=== PATIENT | female | born 1930 | race Caucasian/White ===

== ENCOUNTER 2017-07-30 13:51 | Outpatient (CLI) | payer MEDICARE | END 2017-07-30 13:52 | disposition home or self-care (01) | LOC: BICCT 13:51 | PROVIDERS: ATTEND Nurse Practitioner Family | DX: M54.6 Pain in thoracic spine (principal); M54.5 Low back pain; M47.814 Spondylosis without myelopathy or radiculopathy, thoracic region; M47.816 Spondylosis without myelopathy or radiculopathy, lumbar region; M41.25 Other idiopathic scoliosis, thoracolumbar region | CPT/HCPCS: 72070; 72100; 72128 ==

== ENCOUNTER 2017-10-04 12:53 | Observation (INO) | payer MEDICARE ==
[2017-10-04 13:36] LABS: #Monocytes 0.9 thou/uL (0.11-0.59); #Neutrophils 8.9 thou/uL (1.40-6.50); %Basophils 0.2 % (0.0-1.0); %Eosinophils 0.3 % (0.0-10.0); %Lymphocytes 9.5 % (21.0-51.0); %Neutrophils 82.1 % (42.0-75.0); Hemoglobin 11.5 g/dL (12.0-16.0); Mean Corpuscular HGB CONC 33.1 g/dL (32.0-36.0); Mean Corpuscular Hemoglobin 31.7 pg (27.0-31.0); Mean Corpuscular Volume 95.8 fl (81.0-99.0); Mean Platelet Volume 6.8 fL (7.4-10.4); Platelet Count 214 thou/uL (130-400); RBC Distribution Width 15.9 % (11.5-14.5); Red Blood Cell (RBC) Count 3.63 mill/uL (4.20-5.40); White Blood Cell (WBC) Count 10.8 thou/uL (4.8-10.8)
[2017-10-04 13:56] LABS: INR-International Normal Ratio 1.3; PTT 38.4 SEC (22.9-36.1); Prothrombin Time 16.7 SEC (12.0-14.7)
[2017-10-04 13:57] LABS: ALT (SGPT) 8 U/L (8-55); AST (SGOT) 16 U/L (5-34); Albumin 3.3 g/dL (3.4-4.8); Alkaline Phosphatase 68 U/L (40-150); Anion Gap 14 mmol/L (10-20); BUN (Urea Nitrogen) 9 mg/dL (9.8-20.1); Bilirubin, Total 0.9 mg/dL (0.2-1.2); Calc. Creatinine Clearance 0 mL/min (70-130); Calcium 8.8 mg/dL (7.8-10.44); Carbon Dioxide 22 mmol/L (23-31); Chloride 97 mmol/L (98-107); Estimated GFR-MDRD 74; Globulin 2.9 g/dL (2.4-3.5); Glucose 129 mg/dL (83-110); Potassium 3.9 mmol/L (3.5-5.1); Protein, Total 6.2 g/dL (6.0-8.3); Sodium 129 mmol/L (136-145)
--- NOTE | 2017-10-04 14:19 | RAD ---
PELVIS 1 VIEW: Date: 10/04/17 HISTORY: Pelvic pain. COMPARISON: None. FINDINGS: There is mild narrowing of the hip joints. No acute displaced fracture or malalignment. Mild narrowin g of the pubic symphysis. Obturator rings appear intact, as well as the acetabulum. Sacrum appears to be intact. Ilium and ischium are intact. IMPRESSION: No displaced fracture. If patient is acutely unable to walk, further evaluation with CT or MRI would be recommended. POS: [facility]
--- NOTE | 2017-10-04 14:23 | CT ---
CT BRAIN WITHOUT CONTRAST: Date: 10/04/17 HISTORY: Trauma. Headache. FINDINGS: Comparison made with exam of 01/04/16. Changes of chronic small vessel ischemic disease are again seen. No evidence of acute infarct, hemorr eliu, midline shift, or abnormal extra-axial fluid collections are noted. The ventricular size is sta ble and the basilar cisterns are patent. The bony calvarium is intact. There is a mucus retention cys t in the right maxillary sinus. The remainder of the sinuses and mastoid air cells are well aerated. IMPRESSION: No CT evidence of acute intracranial process. POS: [facility]
--- NOTE | 2017-10-04 14:29 | RAD ---
LEFT HIP TWO VIEWS: HISTORY: Pain. COMPARISON: Pelvis radiograph from the same day. FINDINGS: Mild narrowing of the left hip joint. There is degenerative disease of the pubic symphysis. No disp laced fracture is appreciated. There is what appears to be osteophyte and hypertrophic change of the pubic symphysis and not a displ aced fracture. The obturator rings are intact. IMPRESSION: No displaced fracture. If the patient is acutely unable to bear weight, CT or MRI would be recommended. POS: [facility]
--- NOTE | 2017-10-04 14:37 | CT ---
CT CERVICAL SPINE WITHOUT CONTRAST: 10/04/2017 HISTORY: Left hip pain. Fall. Trauma. Evaluate for fracture. COMPARISON: None. TECHNIQUE: Serial axial CT imaging at 2.5 mm intervals, from the skull base through the lung apices, without con trast. Coronal and sagittal reformatted imaging obtained. FINDINGS: The imaged lung apices are unremarkable. There is atherosclerotic calcification of the aortic arch. There is an incompletely visualized transvenous AICD. There are vascular calcifications involving t he basilar artery and the bilateral distal vertebral arteries, as well as the bilateral cavernous car otid arteries. The occipital condyles, dens, C1-2 articulation, craniocervical junction, and cervicothoracic junctio n demonstrate no acute abnormalities. No anterolisthesis or retrolisthesis is seen. No prevertebral soft tissue swelling. The C1 ring is intact. No displaced fracture or evidence of dislocation is seen involving the cervic al spine. Multilevel uncovertebral osteophyte formation noted, most prominent on the right, at C4-C5 and C5-C6. Multilevel facet hypertrophic changes are noted as well, left greater than right, most p rominent at C3-C4. IMPRESSION: Degenerative changes within the cervical spine. No acute fracture or evidence of dislocation. POS: [facility]
--- NOTE | 2017-10-04 14:39 | RAD ---
CHEST ONE VIEW: HISTORY: Fever. COMPARISON: Chest radiograph from 04/12/2016. FINDINGS: Left basilar air space opacity is present. No pneumothorax. There is mild pulmonary vascular conges tion. There are some nodules projecting over the right lung. Increased pulmonary vascularity. Right paratracheal opacity, likely sequela of tortuous vessels. IMPRESSION: 1. Left basilar air space opacity, concerning for infection. 2. Mild pulmonary vascular congestion. 3. Nodular density over the right upper lobe, may represent a granuloma versus a nodule or pulmonary vasculature. POS: [facility]
[2017-10-04 14:57] LABS: CKMB 0.9 ng/mL (0-6.6); Troponin I 0.037 ng/mL (< 0.028)
--- NOTE | 2017-10-04 17:15 | CT ---
CT PELVIS WITHOUT CONTRAST: 10/04/17 HISTORY: Pain. COMPARISON: Radiograph same day. FINDINGS: BONES: Old left inferior pubic ramus fracture. Hypertrophic osteophyte formation of the pubic symphysis. Adv anced facet arthropathy lower lumbar spine. Advanced degenerative disc space disease L4-5 and L5-S1. No acute displaced fracture or malalignment. Mild degenerative change of the SI joints. There is a hypodensity inferior pole right kidney measuring fluid attenuation suggesting a cyst. No m uscular hematoma. No mild fascial degloving injury. Mild paraspinal muscle atrophy. No free fluid within the deep pelvis. Moderate diverticular disease sigmoid colon. IMPRESSION: No acute fracture or malalignment of the pelvis. POS: [facility]
[2017-10-04 18:03] LABS: Bilirubin Negative (Negative); Blood, Urine Small (Negative); Clarity CLEAR (Clear); Glucose, Urine (Dipstick) Negative (Negative); Leukocyte Negative (Negative); Nitrite Negative (Negative); Protein, Urine (Dipstick) 100 mg/dL (Neg-Trace); Specific Gravity, Urine 1.019 (1.002-1.036); pH, Urine 6.5 (5.0-9.0)
[2017-10-04 18:09] LABS: Bacteria/HPF Rare-Few HPF (None Seen); Hyaline Casts/LPF 0-3 HYALINE CAST LPF (0-3 Hyaline); Pathc Cast-AUWi Flag 0.14 (0-2.49); Squamous Epithelial 0-3 HPF (0-3); WBC/HPF 0-3 HPF (0-3); Yeast-AUWi Flag 11.6 (0-25.0)
[2017-10-04 18:59] LABS: Troponin I 0.045 ng/mL (< 0.028)
[2017-10-05 00:05] VITALS: BMI 29.9
[2017-10-05 05:07] LABS: #Eosinphils 0.1 thou/uL (0.0-0.7); #Monocytes 0.8 thou/uL (0.11-0.59); #Neutrophils 7.7 thou/uL (1.40-6.50); %Basophils 0.3 % (0.0-1.0); %Eosinophils 0.6 % (0.0-10.0); %Monocytes 8.3 % (0.0-10.0); %Neutrophils 80.9 % (42.0-75.0); Hemoglobin 11.6 g/dL (12.0-16.0); Mean Corpuscular Hemoglobin 34.3 pg (27.0-31.0); Mean Corpuscular Volume 95.3 fl (81.0-99.0); Mean Platelet Volume 6.6 fL (7.4-10.4); Platelet Count 202 thou/uL (130-400); RBC Distribution Width 15.8 % (11.5-14.5); Red Blood Cell (RBC) Count 3.37 mill/uL (4.20-5.40); White Blood Cell (WBC) Count 9.5 thou/uL (4.8-10.8)
[2017-10-05 05:26] LABS: Anion Gap 11 mmol/L (10-20); BUN (Urea Nitrogen) 11 mg/dL (9.8-20.1); Calc. Creatinine Clearance 73 mL/min (70-130); Carbon Dioxide 26 mmol/L (23-31); Chloride 97 mmol/L (98-107); Estimated GFR-MDRD 78; Glucose 134 mg/dL (83-110); Potassium 4.1 mmol/L (3.5-5.1); Sodium 130 mmol/L (136-145)
[2017-10-05] MEDS ORDERED: Acetaminophen 500 MG TAB PO PRN (05:52)
[2017-10-05] MEDS ORDERED: Carvedilol 25 MG TAB PO SCH (08:00)
[2017-10-05] MEDS ORDERED: Heparin 5,000 UNITS/ML VIAL SC SCH (09:00)
[2017-10-05] MEDS ORDERED: Furosemide 40 MG TAB PO SCH (09:00)
--- NOTE | 2017-10-05 11:12 | CON ---
DATE OF CONSULTATION: 10/05/2017 HISTORY OF PRESENT ILLNESS: I am seeing Ms. Vasquez at our [facility] telemetry unit for electrophysiology consult. Her problems are: 1. Episode of feeling weak with a productive cough and elevated temperatures, possible pneumonia with abnormal x-ray finding. 2. Chronic systolic congestive heart failure with nonischemic cardiomyopathy. A. Echo from 03/17/2016 in file reveals LVEF of normalized at 50-55%, mild AI, mild MR, mild TR. 3. History of ventricular tachycardia storm requiring ablation in 05/29/2014. 4. History of biventricular ICD implantation. A. Battery is at elective replacement indicator. 5. History of atrial arrhythmias on Eliquis with remote history of TIA in the past. 6. History of hypothyroidism. 7. History of hypertension with limited control. ALLERGIES: None noted. MEDICATIONS: At home include methotrexate, Coreg, [place] thyroid, Diovan, hydrochlorothiazide, Lyrica, potassium, Lasix, vitamin B12, folic acid, Ambien, Eliquis. SUBJECTIVE: Ms. Vasquez is here after feeling very poor, slumping down and she was noted to have significant fever as well. Hence she was brought to the ER by her family, she was also complaining of a productive cough for 2 days and she was evaluated in the ER, she was found to have no evidence of influenza, but possible abnormal chest x-ray results prompting further evaluation. She was currently admitted for observation. Currently, she is feeling fair. No further dizziness or loss of consciousness is noted. Her rhythm remains stable. She has no angina-like chest pains. No PND or orthopnea since fluid overload. The rest of the review of systems otherwise unremarkable. PAST MEDICAL HISTORY: As above. History of thyroidectomy and hysterectomy noted in the past. SOCIAL HISTORY: The patient has smoking, no ETOH or drug use. Lives with her . FAMILY HISTORY: Noncontributory. OBJECTIVE: VITAL SIGNS: Blood pressure is 132/62, heart rate 80, respirations 24, temperature 99 degrees currently, but T-max is 102 degrees Fahrenheit. GENERAL: Alert and oriented woman in no apparent distress. NECK: Supple. Jugular veins not distended. CHEST: Coarse with crackles. CARDIOVASCULAR: Heart sounds are regular to rate and rhythm. No murmur or gallop. ABDOMEN: Benign. Bowel sounds positive. EXTREMITIES: Lower extremities without edema, clubbing or cyanosis. Pulses are adequate. NEUROLOGIC: Patient is nonfocal. MUSCULOSKELETAL: Without joint swelling or deformities. SKIN: Without rash. DATABASE: The telemetry strips reviewed revealing sinus rhythm with ventricular pacing. A short 3 beat run of nonsustained ventricular tachycardia seen only. ICD interrogation is pending. The chest x-ray from yesterday reveals left basilar airspace disease concerning for infection, mild pulmonary vascular congestion, nodular density over the right upper lobe, granuloma versus nodule or pulmonary vasculature. Brain CT was no evidence of acute intracranial process. ASSESSMENT AND PLAN: Ms. Vasquez is a pleasant 87-year-old woman with history of nonischemic cardiomyopathy, albeit most recent echocardiogram revealing normalizing LV function. Prior history of biventricular ICD implantation in the past. Now, she followed up at our office recently and she was noted to have her ICD battery at elective replacement indicator. She was set up to have a generator change, but unfortunately, she developed fever and sliding out of her wheelchair, which prompted her to come to the ER and was admitted. Currently, she is doing fair, continues to be febrile, although borderline white cell counts noted only. So far no specific etiology for her fever is present. Her sliding out of her wheelchair, was not associated with syncope. Nevertheless we evaluated her pacemaker which again justlike a couple weeks ago was exhibiting adequate function. Battery voltage is stilladequate, but approaching replacement indicator, still at leasta couple of month battery is present. At this point, I would prefer continued observation and resolution of her infectious status prior to further generator change. We will make arrangements to reschedule her for a generator change as an outpatient. ICD will be interrogated to rule out arrhythmias. History of heart failure, although likely mostly diastolic at this point, reasonably compensated to continue to monitor. MTDD
[2017-10-05] MEDS ORDERED: Apixaban 2.5 MG TAB PO SCH ×2 (11:30→21:00)
[2017-10-05 12:26] VITALS: TEMP 98.5
[2017-10-05] MEDS ORDERED: Benzonatate 100 MG CAP PO PRN (12:54)
[2017-10-05] MEDS ORDERED: Diabetic Tussin 200 MG/10 ML UDCUP PO PRN (12:54)
[2017-10-05 13:32] VITALS: BP 142/67
--- NOTE | 2017-10-09 13:28 | SS ---
DATE OF SERVICE: 02/02/2018 Please see the formal discharge summary for the patient and a formal history and physical for the pat ient (00:16) short stay summary.
--- NOTE | 2017-10-13 20:42 | EKG ---
Test Reason : Blood Pressure : / mmHG Vent. Rate : 075 BPM Atrial Rate : 075 BPM P-R Int : 192 ms QRS Dur : 152 ms QT Int : 436 ms P-R-T Axes : 069 -25 067 degrees QTc Int : 486 ms Atrial-sensed ventricular-paced rhythm Abnormal ECG Confirmed by JUDI WHITT ([id number]), make up editor AMRIT ADAME ([id number]) on 10/13/2017 8:41:09 PM Referred By: Confirmed By:JUDI WHITT
--- NOTE | 2017-11-11 21:50 | HP ---
CHIEF COMPLAINT: Weakness with fever. HISTORY OF PRESENT ILLNESS: This is an 87-year-old female with a known history of ventricular tachycardia, status post permanent pacemaker, hypothyroidism, hypertension, who presented with a chief complaint of feeling weak with a cough and fever. The patient has been feeling poor over the last 2 days with the complaints as noted above. No overtly known sick contacts that the patient is aware of. Other than the fevers, no chills, the cough has been marginally productive. The patient endorses overall weakness. No focal chest pain, chest pressure or overt shortness of breath while at rest. In the emergency department, the patient was found to have a chest x-ray, potentially consistent with a community-acquired pneumonia. REVIEW OF SYSTEMS: Positive as per HPI, otherwise remainder of the review of systems is negative. PAST MEDICAL HISTORY: As per above. Significant for; 1. Chronic systolic congestive heart failure with EF of 50% to 55%. 2. Known history of ventricular tachycardia, status post ablation in 2013. 3. Status post biventricular implantable cardioverter defibrillator. 4. Status post thyroidectomy with subsequent hypothyroidism. 5. Status post hysterectomy. 6. Hypertension. HOME MEDICATIONS: Please see the EMR for full details. The patient is currently on thyroid, Eliquis, Lyrica, Lasix, potassium, hydrochlorothiazide, Coreg, vitamin B12, folic acid and methotrexate. ALLERGIES: No known drug allergies. FAMILY HISTORY: The patient denies any known family history of recurrent lung infections or cardiac arrhythmias. SOCIAL HISTORY: Patient lives at home with her family. Denies any alcohol, tobacco or illicit drug use. PHYSICAL EXAMINATION: GENERAL: The patient is awake, alert, conversant, in no acute distress, lying in the hospital bed. HEENT: Normocephalic, atraumatic, equal ocular motions are intact, slightly dry mucous membranes. CARDIOVASCULAR: S1, S2. Pulses 2+ bilateral upper extremities. RESPIRATORY: Marginal air movement. No conversational dyspnea. No overt wheezes, rales or rhonchi. Clear to auscultation grossly. ABDOMEN: Positive bowel sounds, soft, nontender to palpation. MUSCULOSKELETAL: Able to move all 4 extremities. LABORATORY DATA AND IMAGING: WBC 10.8, hemoglobin 11.5, hematocrit 34.8, platelets 214. INR 1.3. Sodium 129, potassium 3.9, chloride 97, bicarbonate 22 , BUN 9, creatinine 0.74, glucose 129, calcium 8.8, total bilirubin 0.9, AST 16 , ALT 8, alkaline phosphatase 68. Initial troponin 0.037. Basic natriuretic peptide 811.6, total protein 6.4, albumin 3.3. UA is significant for 100 of protein and small blood. On 10/04/2017, chest x-ray. Impression: "Left basilar airspace opacity, concerning for infection. Mild pulmonary vascular congestion. Nodular density over the right upper lobe, may represent a granuloma versus a nodule or pulmonary vasculature." ASSESSMENT AND PLAN: An 87-year-old female who presents with subjective fevers at home and a cough accompanied by weakness. 1. Likely secondary to community-acquired pneumonia type organism. We will start the patient on empiric antibiotics and closely monitor her vital signs. 2. Known history of ventricular tachyarrhythmia, status post ablation and permanent pacemaker placement. I appreciate Electrophysiology consultation. Interrogate the pacemaker, continue to monitor on telemetry as well. 3. Hypertension, stable. 4. Hypothyroidism, stable. 5. Diet: Cardiac. 6. Activity: As tolerated. 7. Admit the patient under observation status to telemetry. ATTILA
--- NOTE | 2017-11-11 21:58 | DIS ---
DISCHARGE DIAGNOSES: 1. Community-acquired pneumonia. 2. Suspected systemic inflammatory response syndrome secondary to the above. BRIEF SUMMARY OF HOSPITAL COURSE: This is an 87-year-old female who initially presented with a chief complaint of weakness, cough, and a fever. She is found to have a community-acquired pneumonia. Please see the original history and physical for full details surrounding her admission. Patient was seen by Electrophysiology at a concern that there could be a potential cardiac component to her presentation: At the time of discharge, it is felt that the patient's condition is predominantly attributable to her community-acquired pneumonia. Patient has been started on antibiotics and at the time of discharge subjectively feels better. Remainder of the patient's chronic medical issues have remained stable during hospitalization. CONSULTATIONS: Electrophysiology. MEDICATION RECONCILIATION: Please see the EMR for full details. At the time of discharge, the patient is on Levaquin 500 mg p.o. daily and Tessalon Perles 100 mg p.o. t.i.d. p.r.n. for cough. She is otherwise to continue on her home regimen. CONDITION AT DISCHARGE: At the time of discharge, the patient is hemodynamically stable and able to participate in her ADLs and tolerating a baseline diet. Patient was seen and examined on the day of discharge. DISCHARGE INSTRUCTIONS: Patient is asked to follow up closely with her outpatient care team including her primary care provider, route cdl driver, and firestop/containment worker. Patient will need a routine battery change in the future. Thank you for asking me care for the patient. Questions or concerns, contact me at [facility]. ATTILA
== END 2017-10-05 15:19 | disposition home or self-care (01) ==
LOC: ERS 12:53 → 2SW 19:35
PROVIDERS: ADMIT Internal Medicine; ATTEND Internal Medicine
DX: M25.552 Pain in left hip (principal); R50.9 Fever, unspecified; R05 Cough; I11.0 Hypertensive heart disease with heart failure; I50.22 Chronic systolic (congestive) heart failure; E89.0 Postprocedural hypothyroidism; I42.8 Other cardiomyopathies; I48.91 Unspecified atrial fibrillation; F17.200 Nicotine dependence, unspecified, uncomplicated; Z79.01 Long term (current) use of anticoagulants; Z79.899 Other long term (current) drug therapy; Z95.810 Presence of automatic (implantable) cardiac defibrillator; Z98.890 Other specified postprocedural states; Z86.73 Personal history of transient ischemic attack (TIA), and cerebral infarction without residual deficits; W18.39XA Other fall on same level, initial encounter
CPT/HCPCS: 70450; 71045; 72125; 72170; 72192; 73502; 80048; 80053; 82553; 83880; 84484 ×2; 85025 ×2; 85379; 85610; 85730; 87040; 87804 ×2; 93005; 97530; 99285; G0378; G8978; G8979; 36415; 81003; 81015

== ENCOUNTER 2018-09-23 16:58 | Inpatient (IN) | payer MEDICARE ==
[2018-09-23 17:48] LABS: #Eosinphils 0.4 thou/uL (0.0-0.7); #Lymphocytes 1.3 thou/uL (1.20-3.40); #Monocytes 0.1 thou/uL (0.11-0.59); #Neutrophils 6.1 thou/uL (1.40-6.50); %Basophils 0.4 % (0.0-1.0); %Lymphocytes 16.5 % (21.0-51.0); %Monocytes 1.5 % (0.0-10.0); %Neutrophils 76.5 % (42.0-75.0); Mean Corpuscular HGB CONC 31.3 g/dL (32.0-36.0); Mean Corpuscular Hemoglobin 30.6 pg (27.0-31.0); Mean Corpuscular Volume 97.8 fL (78.0-98.0); Mean Platelet Volume 8.6 fL (7.4-10.4); Platelet Count 208 thou/uL (130-400); Red Blood Cell (RBC) Count 3.58 mill/uL (4.20-5.40)
--- NOTE | 2018-09-23 18:09 | RAD ---
CHEST ONE VIEW: History: Weakness. Hypotension. Comparison: 10-04-17 FINDINGS: There is a layering left effusion. There is consolidation of the left lung base. Right lung is relatively clear. There scarring in both lungs. Cardiac device is similar. IMPRESSION: Layering left effusion and left basilar airspace opacity concerning for infection. POS: [facility]
[2018-09-23 18:27] LABS: Bilirubin Negative (Negative); Blood, Urine Negative (Negative); Clarity CLEAR (Clear); Glucose, Urine (Dipstick) Negative (Negative); Leukocyte Negative (Negative); Nitrite Negative (Negative); Protein, Urine (Dipstick) Negative (Neg-Trace)
[2018-09-23 18:35] LABS: ALT (SGPT) 30 U/L (8-55); AST (SGOT) 50 U/L (5-34); Albumin 3.2 g/dL (3.4-4.8); Alkaline Phosphatase 61 U/L (40-150); Anion Gap 15 mmol/L (10-20); BUN (Urea Nitrogen) 23 mg/dL (9.8-20.1); Bilirubin, Total 1.1 mg/dL (0.2-1.2); CK (CPK) 75 U/L (29-168); Calc. Creatinine Clearance 0 mL/min (70-130); Calcium 8.1 mg/dL (7.8-10.44); Carbon Dioxide 27 mmol/L (23-31); Chloride 104 mmol/L (98-107); Estimated GFR-MDRD 36; Globulin 2.4 g/dL (2.4-3.5); Glucose 145 mg/dL (83-110); Potassium 3.5 mmol/L (3.5-5.1); Protein, Total 5.6 g/dL (6.0-8.3); Sodium 142 mmol/L (136-145)
--- NOTE | 2018-09-23 19:01 | CT ---
CT BRAIN WITHOUT CONTRAST: Indication: History of hypertension and weakness. Comparison: 10-04-17 FINDINGS: The moderate chronic small vessel white matter ischemic change appears similar appearing. No definite acute infarct. No acute infarct, hemorrhage or hydrocephalus is present. The septum pellucidum and t hird ventricle are midline. Mild generalized cerebral and cerebellar atrophy is stable appearing. [place] air cells are clear. There is some mucosal thickening within the ethmoid air cells. The skull is intact. IMPRESSION: No acute intracranial abnormality. POS: [facility]
[2018-09-23] MEDS ORDERED: cefTRIAXone\\ROCEPHIN 2 GM VIAL ONE (19:18)
[2018-09-23 19:48] LABS: Troponin I 0.029 ng/mL (< 0.028)
[2018-09-23] MEDS ORDERED: Azithromycin 500 MG VIAL ONE (20:19)
[2018-09-23] MEDS ORDERED: Labetalol HCl 100 MG/20 ML VIAL SLOW IVP PRN (20:32)
[2018-09-23] MEDS ORDERED: Acetaminophen 500 MG TAB PO PRN (20:32)
[2018-09-23] MEDS ORDERED: Ondansetron ODT 4 MG TAB PO PRN (20:32)
[2018-09-23] MEDS ORDERED: Benzonatate 100 MG CAP PO PRN (20:32)
[2018-09-23] MEDS ORDERED: Ondansetron PF 4 MG/2 ML Vial IVP PRN (20:32)
[2018-09-23] MEDS ORDERED: Calcium Carbonate 500 MG ChewTAB PO PRN (20:32)
[2018-09-23] MEDS ORDERED: Zolpidem Tartrate 5 MG TAB PO PRN (20:34)
[2018-09-23] MEDS ORDERED: Zolpidem Tartrate 5 MG TAB ONE (21:39)
[2018-09-23] MEDS: Carvedilol 25 MG TAB PO SCH (22:07)
[2018-09-23] MEDS: Apixaban 2.5 MG TAB PO SCH (22:07)
[2018-09-23] MEDS: D5 1/2 NS w/20 mEq KCL 1,000 ML IV SCH (22:07)
[2018-09-23] MEDS: Pravastatin Sodium 20 MG TAB PO SCH (22:08)
[2018-09-23] MEDS: Pregabalin 50 MG CAP PO SCH (22:08)
[2018-09-23 23:12] VITALS: BMI 29.2
[2018-09-24 00:21] LABS: Troponin I 0.025 ng/mL (< 0.028)
--- NOTE | 2018-09-24 02:29 | HP ---
CHIEF COMPLAINT: Weakness, fatigue. HISTORY OF PRESENT ILLNESS: The patient has been followed by Dr. Betancur on outpatient basis and started on a new antiarrhythmic with plans to cardiovert the patient on the of this month. However, per reports, in the emergency department, the patient has converted to normal sinus rhythm. She does have a pacemaker in place. Reported EKG was paced to rhythm. The patient was evaluated in the emergency department for continued deterioration after her son noticed patient's decline including cognitively. Head CT was normal in the emergency department, however, chest x-ray found likely left community-acquired pneumonia. The patient is stable on room air, has no acute complaints with sleeping at the time of exam, easily arousable, and had no acute complaints. PAST MEDICAL, SOCIAL AND SURGICAL HISTORY: Review of past medical, social and surgical history includes coronary artery disease, hypothyroidism, congestive heart failure, cardiomyopathy, status post pacemaker, atrial fibrillation, paroxysmal, insomnia, neuropathic pain. Last ejection fraction 50% to 55% known on echo, history of SVT with ablation in 2013. FAMILY HISTORY: Coronary artery disease and arrhythmias. SOCIAL HISTORY: Family support of son. Denies tobacco or alcohol use. REVIEW OF SYSTEMS: On more formal review of systems, positive fatigue. No fevers, no chills. Positive cough. No shortness of breath. No chest pains. Positive changes in memory. The patient denies dysuria. No polyuria. No polydipsia. No nausea, vomiting, or diarrhea. No syncopal episodes. Review of vital signs at bedside in emergency department HR 60s, blood pressure 118/75, oxygen saturation 96% on room air, respiratory rate of 14 while sleeping. LABORATORY DATA: Review of laboratory work; urine normal, specific gravity 1.01. Troponin x1 0.02. Troponins x2 0.029. Sodium of 142, potassium of 3.5, CO2 of 27, BUN of 23, creatinine elevated from patient's baseline of 0.8 to 1.38, glucose of 145, calcium of 8.1, AST of 50, ALT of 30, albumin at baseline of 3.2. Hematology; baseline normocytic anemia of 11.0. White blood cell count of 8.0, left shift of 78% neutrophils. Chest x-ray was suggestive of pleural effusion and left lower lobe consolidation consistent with infection. Brain CT, no acute intracranial events. PHYSICAL EXAMINATION: GENERAL: The patient is arousable from sleep. No acute distress. HEENT: Head is normocephalic and atraumatic. Extraocular movements are intact. The patient is elderly with some signs of temporal thinning and wasting. Oral mucosa is moist. NECK: Supple. HEART: Regular rate and rhythm at the time of exam. No murmurs are auscultated. LUNGS: With diminished breath sounds, bilateral bases. No rhonchi or rales. ABDOMEN: Soft, nontender. Positive bowel sounds throughout. EXTREMITIES: Lower extremities without cyanosis. Pedal edema positive bilaterally of 1+ pitting. No edema of shins, however, skin changes consistent with venous stasis dermatitis with hyperpigmentation and lack of hair present. Varicose veins bilaterally, lower extremities. Dorsalis pedis pulses present, 1+ left lower extremity, 2+ right lower extremity. NEURO: The patient is alert and oriented times 1-2. No focal deficits. Speech is normal. ASSESSMENT AND PLAN: Paroxysmal atrial fibrillation, community-acquired pneumonia, congestive heart failure, systolic, insomnia, hypothyroidism, autoimmune disorder with chronic pain. Continuing the patient's home medications; however, the patient's Pharmacy was closed at the time of admission and Dr. Hdez's last note does not have a new medication Dr. Ng put the patient on prior to potential cardioversion on the . We will consult Dr. Betancur in the morning for continued medical management as he is the last person to change patient's medications, no medications at bedside for reconciliation, Pharmacy is closed as above. Continue azithromycin and Rocephin initiated in the emergency department. The patient had light IV rehydration overnight while sleeping. Hold patient's morning Lasix, given some element of pleural effusion and lower extremity edema , we would likely recommend restarting within 24-48 hours. Continuing Eliquis even though the patient is in apparent sinus rhythm. Repeat EKG in the morning. Follow up on thyroid check, cell count trend and for patient's acute kidney injury, IV fluids as above, but we will trend in the morning, finish out with trending troponins given the last being indeterminate. However, ST depression was only found in V1 and V2. No ST-segment elevations on the EKG at bedside in emergency department. Job ID: [id number] [facility]
[2018-09-24 05:47] LABS: #Eosinphils 0.5 thou/uL (0.0-0.7); #Monocytes 0.2 thou/uL (0.11-0.59); #Neutrophils 3.2 thou/uL (1.40-6.50); %Basophils 0.7 % (0.0-1.0); %Eosinophils 10.6 % (0.0-10.0); %Lymphocytes 20.5 % (21.0-51.0); %Monocytes 4.1 % (0.0-10.0); %Neutrophils 64.2 % (42.0-75.0); Hemoglobin 10.2 g/dL (12.0-16.0); Mean Corpuscular HGB CONC 31.9 g/dL (32.0-36.0); Mean Corpuscular Hemoglobin 30.9 pg (27.0-31.0); Mean Corpuscular Volume 97.2 fL (78.0-98.0); Mean Platelet Volume 8.3 fL (7.4-10.4); Platelet Count 169 thou/uL (130-400); RBC Distribution Width 16.7 % (11.5-14.5)
[2018-09-24 06:05] LABS: ALT (SGPT) 25 U/L (8-55); AST (SGOT) 39 U/L (5-34); Albumin 2.9 g/dL (3.4-4.8); Alkaline Phosphatase 54 U/L (40-150); Anion Gap 12 mmol/L (10-20); BUN (Urea Nitrogen) 20 mg/dL (9.8-20.1); Bilirubin, Total 0.8 mg/dL (0.2-1.2); Calc. Creatinine Clearance 47 mL/min (70-130); Calcium 8.3 mg/dL (7.8-10.44); Carbon Dioxide 29 mmol/L (23-31); Chloride 103 mmol/L (98-107); Estimated GFR-MDRD 46; Globulin 2.5 g/dL (2.4-3.5); Glucose 105 mg/dL (83-110); Potassium 3.2 mmol/L (3.5-5.1); Protein, Total 5.4 g/dL (6.0-8.3); Sodium 141 mmol/L (136-145)
[2018-09-24 06:35] LABS: Thyroid Stimulating Hormone 2.5581 uIU/mL (0.35-4.94)
[2018-09-24] MEDS ORDERED: Potassium Chloride 40 MEQ in Sodium Chloride 0.9% 250 ML 250 ML IVPB SCH (07:30)
--- NOTE | 2018-09-24 08:01 | PRG ---
DATE OF SERVICE: 09/24/2018 SUBJECTIVE: Ms. Vasquez is asleep. She has no complaints. Her daughter is at her bedside. OBJECTIVE: VITAL SIGNS: Temperature 96.4, blood pressure 141/65, and O2 saturation is 95% on room air. LUNGS: Bilateral breath sounds. HEART: Reveals a regular rate and rhythm. No murmurs, gallops, or rubs. EXTREMITIES: No clubbing, edema, or cyanosis. LABORATORY DATA: Her hemoglobin is 10.2, hematocrit 32.1, and white blood count 5.0. Chemistry; sodium 141, potassium 3.2, chloride 103, CO2 of 29, BUN 20, and creatinine 1.13. Urinalysis, otherwise clear. IMPRESSION: An 88-year-old female admitted for pneumonia. 1. Pneumonia appears to be apparently mild. 2. Cognitive changes of unknown etiology. It does not appear that the pneumonia that she is suffering from or the renal function issues that she is having really would explain this at this time. There is a history of a new medication started that might be a possibility. PLAN: 1. Continue current treatment. 2. Check lab in a.m. Job ID: [id number]
[2018-09-24] MEDS: Isosorbide Dinitrate 20 MG TAB PO SCH (09:24)
[2018-09-24] MEDS: Potassium Chloride 10 MEQ TAB PO SCH (09:25)
[2018-09-24] MEDS: Losartan 25 MG TAB PO SCH (09:25)
[2018-09-24] MEDS: Carvedilol 25 MG TAB PO SCH ×2 (09:25→20:14)
[2018-09-24] MEDS: Pregabalin 50 MG CAP PO SCH ×2 (09:32→20:13)
--- NOTE | 2018-09-24 09:37 | EKG ---
Test Reason : Blood Pressure : / mmHG Vent. Rate : 060 BPM Atrial Rate : 159 BPM P-R Int : 000 ms QRS Dur : 180 ms QT Int : 504 ms P-R-T Axes : 000 -30 083 degrees QTc Int : 504 ms Electronic ventricular pacemaker When compared with ECG of 23-SEP-2018 17:05, (Unconfirmed) Vent. rate has decreased BY [address] Kate RODRIGUEZ ([id number]) on 09/24/2018 9:37:25 AM Referred By: TRE Confirmed By:DR. Kate RODRIGUEZ
[2018-09-24] MEDS: Apixaban 2.5 MG TAB PO SCH ×2 (12:46→20:14)
[2018-09-24] MEDS ORDERED: Dronedarone HCl 400 MG TAB PO SCH (13:15)
[2018-09-24] MEDS: D5 1/2 NS w/20 mEq KCL 1,000 ML IV SCH (17:50)
[2018-09-24] MEDS: Dronedarone HCl 400 MG TAB PO SCH (17:57)
[2018-09-24] MEDS: Azithromycin 500 MG in Sodium Chloride 0.9% 250 ML 250 ML IVPB SCH (20:12)
[2018-09-24] MEDS: cefTRIAXone\\ROCEPHIN 1 GM in Sodium Chloride 0.9% 100 ML IVPB SCH (20:12)
[2018-09-24] MEDS: Pravastatin Sodium 20 MG TAB PO SCH (20:14)
[2018-09-24] MEDS ORDERED: Azithromycin 500 MG in Sodium Chloride 0.9% 250 ML 250 ML IVPB SCH (21:00)
--- NOTE | 2018-09-24 23:04 | CON ---
DATE OF CONSULTATION: HISTORY OF PRESENT ILLNESS: The patient is an 88-year-old woman, who presents with altered mental status. The patient has a long history of nonischemic cardiomyopathy. The patient also has paroxysmal atrial fibrillation. The patient was recently seen and reported having palpitations and feeling extremely weak. She subsequently was started on Multaq. The patient was in her usual state of health, but started having altered mental status and noted to have possible pneumonia. She was admitted for further evaluation. The patient reported feeling dyspneic. She denied having any chest discomfort. PAST MEDICAL HISTORY: 1. Cardiomyopathy. 2. Sjogren syndrome. 3. Atrial fibrillation. 4. Hypertension. 5. Dyslipidemia. PAST SURGICAL HISTORY: Knee surgery, thyroidectomy. MEDICATIONS: See nursing list. ALLERGIES: NONE. SOCIAL HISTORY: Nonsmoker. PHYSICAL EXAMINATION: GENERAL: Elderly woman, in no acute distress, who is alert and oriented x3. VITAL SIGNS: Blood pressure 122/62. NECK: No jugular venous distention. LUNGS: Coarse breath sounds bilateral. HEART: Regular rate and rhythm. Normal S1 and S2. ABDOMEN: Nondistended. EXTREMITIES: Showed no edema. SKIN: Warm and dry. VASCULAR: Radial pulses are 2+. LABORATORY RESULTS: Her sodium is 141, potassium 3.2, chloride 103, bicarbonate 29, BUN 13, creatinine 1.13. White blood cell count 5.0, hemoglobin 10.2, hematocrit 32.1, and platelet 169. EKG revealed an electronic ventricular pacemaker. IMPRESSION: 1. Altered mental status. 2. Possible pneumonia. 3. Atrial fibrillation, which converted to normal sinus rhythm. 4. History of cardiomyopathy. 5. Hypertension. 6. Dyslipidemia. This patient converted with Multaq. Her most recent echocardiogram revealed good left ventricular function from a cardiac standpoint. We would continue on this medication. Continue IV antibiotics. We would avoid erythromycin with her prolonged QT. We will follow this patient with you through her hospitalization. Job ID: [id number]
[2018-09-25 07:21] LABS: Troponin I 0.028 ng/mL (< 0.028)
[2018-09-25 07:31] LABS: Anion Gap 14 mmol/L (10-20); BUN (Urea Nitrogen) 16 mg/dL (9.8-20.1); Calc. Creatinine Clearance 62 mL/min (70-130); Calcium 8.2 mg/dL (7.8-10.44); Carbon Dioxide 23 mmol/L (23-31); Chloride 105 mmol/L (98-107); Estimated GFR-MDRD 61; Glucose 73 mg/dL (83-110); Sodium 138 mmol/L (136-145)
[2018-09-25] MEDS: Potassium Chloride 10 MEQ TAB PO SCH (09:15)
[2018-09-25] MEDS: Dronedarone HCl 400 MG TAB PO SCH ×2 (09:15→17:45)
[2018-09-25] MEDS: Isosorbide Dinitrate 20 MG TAB PO SCH (09:16)
[2018-09-25] MEDS: Apixaban 2.5 MG TAB PO SCH ×2 (09:16→20:58)
[2018-09-25] MEDS: Carvedilol 25 MG TAB PO SCH ×2 (09:16→20:59)
[2018-09-25] MEDS: Pregabalin 50 MG CAP PO SCH ×2 (09:17→20:58)
[2018-09-25] MEDS: Losartan 25 MG TAB PO SCH (09:17)
--- NOTE | 2018-09-25 10:04 | PRG ---
DATE OF SERVICE: 09/25/2018 SUBJECTIVE: Ms. Vasquez is awake and alert, doing well. She has no medical complaints. OBJECTIVE: VITAL SIGNS: Temperature is 97.6, BP 149/63, pulse 62 and regular. LUNGS: Bilateral breath sounds without rales, wheezes, or rhonchi. HEART: Reveals a regular rate and rhythm. No murmurs, gallops, or rubs. LABORATORY DATA: Sodium 138, potassium 4.0, chloride 105, CO2 of 23, BUN 16, creatinine 0.88. IMPRESSION: 1. Acute confusional state of unknown etiology. 2. Acute kidney injury. 3. Pneumonia. 4. History of atrial fibrillation. PLAN: The patient is back to her normal state of mentation. I am concerned she may have accidentally taken medication that caused her acute confusional state. I seriously doubt [place] was responsible for this. I do not think an acute kidney injury of a degree that she had will be responsible for this and her pneumonia certainly is not that severe to cause this type of confusional state. I explained this to the family. We will continue current therapy. We will get consult for rehab as well as physical therapy. Job ID: [id number]
[2018-09-25] MEDS: cefTRIAXone\\ROCEPHIN 1 GM in Sodium Chloride 0.9% 100 ML IVPB SCH (20:54)
[2018-09-25] MEDS: Azithromycin 500 MG in Sodium Chloride 0.9% 250 ML 250 ML IVPB SCH (20:58)
[2018-09-25] MEDS: Pravastatin Sodium 20 MG TAB PO SCH (21:00)
[2018-09-26] MEDS: Pregabalin 50 MG CAP PO SCH ×2 (08:56→21:01)
[2018-09-26] MEDS: Losartan 25 MG TAB PO SCH (08:57)
[2018-09-26] MEDS: Apixaban 2.5 MG TAB PO SCH ×2 (08:58→21:01)
[2018-09-26] MEDS: Isosorbide Dinitrate 20 MG TAB PO SCH (08:58)
[2018-09-26] MEDS: Potassium Chloride 10 MEQ TAB PO SCH (08:59)
[2018-09-26] MEDS: Carvedilol 25 MG TAB PO SCH ×2 (08:59→21:02)
[2018-09-26] MEDS: Dronedarone HCl 400 MG TAB PO SCH ×2 (09:00→17:06)
[2018-09-26] MEDS ORDERED: Methotrexate Sodium 2.5 MG TAB PO SCH (10:00)
[2018-09-26] MEDS: Pravastatin Sodium 20 MG TAB PO SCH (21:02)
[2018-09-27] MEDS: Dronedarone HCl 400 MG TAB PO SCH ×2 (08:32→17:38)
[2018-09-27] MEDS: Carvedilol 25 MG TAB PO SCH ×2 (08:32→20:31)
[2018-09-27] MEDS: Potassium Chloride 10 MEQ TAB PO SCH (08:32)
[2018-09-27] MEDS: Losartan 25 MG TAB PO SCH (08:32)
[2018-09-27] MEDS: Isosorbide Dinitrate 20 MG TAB PO SCH (08:33)
[2018-09-27] MEDS: Apixaban 2.5 MG TAB PO SCH ×2 (08:34→20:32)
[2018-09-27] MEDS: Pregabalin 50 MG CAP PO SCH ×2 (08:39→20:41)
[2018-09-27] MEDS: Pravastatin Sodium 20 MG TAB PO SCH (20:31)
[2018-09-28 02:08] VITALS: BP 148/70; TEMP 98.7
--- NOTE | 2018-09-28 16:06 | EKG ---
Test Reason : HYPOTENSION Blood Pressure : / mmHG Vent. Rate : 062 BPM Atrial Rate : 061 BPM P-R Int : 000 ms QRS Dur : 170 ms QT Int : 510 ms P-R-T Axes : 000 -19 079 degrees QTc Int : 517 ms Electronic ventricular pacemaker Confirmed by JEFFERSON NUNEZ DO ([id number]), health editor AMRIT ADAME ([id number] on 09/28/2018 4:06:29 PM Referred By: Confirmed By:JEFFERSON NUNEZ DO
== END 2018-09-27 21:12 | disposition home or self-care (01) | DRG 194 ==
LOC: ERS 16:58 → ERHOLD 19:03 → 2NO 22:45
PROVIDERS: ADMIT Family Medicine; ATTEND Family Medicine
DX: J18.9 Pneumonia, unspecified organism (principal); I42.9 Cardiomyopathy, unspecified; N17.9 Acute kidney failure, unspecified; I50.22 Chronic systolic (congestive) heart failure; I48.0 Paroxysmal atrial fibrillation; I11.0 Hypertensive heart disease with heart failure; Z95.0 Presence of cardiac pacemaker; I25.10 Atherosclerotic heart disease of native coronary artery without angina pectoris; M35.00 Sjogren syndrome, unspecified; D89.89 Other specified disorders involving the immune mechanism, not elsewhere classified; I83.12 Varicose veins of left lower extremity with inflammation; I83.11 Varicose veins of right lower extremity with inflammation; E78.5 Hyperlipidemia, unspecified; G89.29 Other chronic pain; G62.9 Polyneuropathy, unspecified; E89.0 Postprocedural hypothyroidism; D64.9 Anemia, unspecified; G47.00 Insomnia, unspecified; Z82.49 Family history of ischemic heart disease and other diseases of the circulatory system; Z96.651 Presence of right artificial knee joint
CPT/HCPCS: 36415; 51701; 70450; 71045; 80048; 80053; 81003; 82550; 83735; 84443; 84481; 84484; 85025; 93005; 93010; 94760; 96365; 96367; J0456; J0696; J3480; J7050; J8610; Q0162